=== PATIENT | female | born 1970 | race Caucasian/White ===

== ENCOUNTER 2023-05-29 04:24 | Emergency (ER) | payer SELFPAY ==
[~2023-05-29] VITALS: Ht 157.5 cm; Wt 76.3 kg
[2023-05-29 06:20] LABS: Chloride 108 mmol/L (98-107); Potassium 3.9 mmol/L (3.5-5.1); Sodium 139 mmol/L (136-145)
[2023-05-29 06:22] LABS: Anion Gap 9 (5-15); Calcium 9.7 mg/dL (8.5-10.1); Carbon Dioxide 22 mmol/L (20-30)
[2023-05-29 06:26] LABS: Basophils # (auto) 0 10 ^3/uL (0-0.2); Basophils % (auto) 0.6 % (0.0-2.0); Eosinophils # (auto) 0.2 10 ^3/uL (0-0.8); Eosinophils % (auto) 2.2 % (0.0-7.0); Hematocrit 44.3 % (36.0-46.0); Hemoglobin 14.6 g/dL (12.2-16.2); Lymphocytes % (auto) 26.9 % (10.0-50.0); Mean Corpuscular Hemoglobin 28.8 pg (28.0-32.0); Mean Corpuscular Volume 87.3 fL (80.0-100.0); Monocytes # (auto) 0.6 10 ^3/uL (0-1.3); Monocytes % (auto) 8.6 % (0.0-12.0); Neutrophils # (auto) 4.7 10 ^3/uL (1.6-8.6); Neutrophils % (auto) 61.7 % (37.0-80.0); Nucleated Red Blood Cells % 0.2 %; Red Blood Cells 5.08 10^6/uL (4.0-5.20); Red Cell Distribution Width 14.6 % (11.8-14.3); White Blood Cell 7.5 10^3/uL (4.4-10.8)
[2023-05-29 06:27] LABS: Blood Urea Nitrogen 15 mg/dL (9-23); Glucose 212 mg/dL (74-106)
[2023-05-29 06:58] LABS: Urine Bacteria FEW /hpf (None Seen); Urine Blood 3+ /uL (Negative); Urine Budding Yeast MODERATE /hpf (None Seen); Urine Clarity Ex.Turbid (Clear); Urine Color Light-Red (Yellow); Urine Mucus FEW (None Seen); Urine Protein, UAD 1+ (Negative); Urine Specific Gravity 1.024 (1.001-1.035); Urine Urobilinogen Normal (Negative); Urine WBC 287 /hpf (0 - 5); Urine WBC Clumps PRESENT /hpf (None Seen); Urine pH 5.5 (5.0-9.0)
[2023-05-29] MEDS: CIPROFLOXACIN HCL 500 MG TAB PO ONE (08:17)
[2023-05-29] MEDS: traMADol HCL 50 MG TAB PO ONE (08:17)
[2023-05-29 08:23] VITALS: BP 120/72; PULSE 86; RESP 17; TEMP 98.1; O2SAT 98
[2023-05-29] MEDS ORDERED: TRAM50TA2 PO (08:39)
[2023-05-29] MEDS ORDERED: CIPR-173 PO (08:39)
== END 2023-05-29 09:15 | disposition home or self-care (01) ==
LOC: ER 04:24
DX: N39.0 Urinary tract infection, site not specified (principal); R10.9 Unspecified abdominal pain; E11.9 Type 2 diabetes mellitus without complications; F15.90 Other stimulant use, unspecified, uncomplicated; Z98.890 Other specified postprocedural states; Z79.899 Other long term (current) drug therapy
CPT/HCPCS: 36415; 80048; 81001; 85025

== ENCOUNTER 2024-03-08 12:09 | Emergency (ER) | payer SELFPAY ==
[~2024-03-08] VITALS: Ht 157.5 cm; Wt 77.7 kg
[~2024-03-08 12:09] MED LIST: CIPR-173 PO; TRAM50TA2 PO
[2024-03-08 13:14] VITALS: BP 122/70; PULSE 95; RESP 16; TEMP 97.9; O2SAT 97
[2024-03-08] MEDS: ACETAMINOPHEN 325 MG TAB PO ONE (13:18)
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
[2024-03-08] MEDS ORDERED: METH-1182 PO (13:47)
[2024-03-08] MEDS ORDERED: IBUP-1456 PO (13:47)
== END 2024-03-08 13:52 | disposition home or self-care (01) ==
LOC: ER 12:09
DX: S16.1XXA Strain of muscle, fascia and tendon at neck level, initial encounter (principal); S39.012A Strain of muscle, fascia and tendon of lower back, initial encounter; E11.9 Type 2 diabetes mellitus without complications; F12.90 Cannabis use, unspecified, uncomplicated; Z79.899 Other long term (current) drug therapy; Z98.890 Other specified postprocedural states; V49.88XA Car occupant (driver) (passenger) injured in other specified transport accidents, initial encounter; Y93.89 Activity, other specified; Y92.89 Other specified places as the place of occurrence of the external cause; Y99.8 Other external cause status
CPT/HCPCS: 72040; 72100